=== PATIENT | male | born 2000 | race African-American/Black ===

== ENCOUNTER 2024-01-22 02:11 | Emergency (ER) | payer OTHER, SELFPAY ==
[2024-01-22 02:21] VITALS: BP 175/86; PULSE 68; RESP 16; TEMP 36.7; O2SAT 98; BMI 27.1
[2024-01-22 03:11] VITALS: TEMP 36.7
[2024-01-22] MEDS: IBUPROFEN 200 MG TABLET 600 MG PO (03:11)
[2024-01-22 03:14] VITALS: BP 145/74; PULSE 71; RESP 16; TEMP 36.7; O2SAT 98
[2024-01-22 03:15] VITALS: BP 145/74; PULSE 71; RESP 16; TEMP 36.7
--- NOTE | 2024-01-22 03:19 | ED_ITS ---
HPI - Extremity Injury (Lower) General Chief Complaint: Extremity Pain/Injury, Lower Stated Complaint: right foot pain Time Seen by Provider: 01/22/24 02:14 Source: patient Mode of arrival: ambulatory Limitations: no limitations History of Present Illness HPI Narrative: R Achillies pain up calf, happened jumping while playing volleyball at 1900. states swelling and pain with movement, did not take any pain meds Patient is a very nice student, here in town, from [place]. Was playing volleyball when he noted a pop in his right Achilles, since then he has had trouble bearing weight going up on his foot. Comes in [facility] for an assessment of this issue denies any numbness tingling weakness he has had no previous injury of problems. Is otherwise healthy. Place: school Severity: moderate Relieving factors: nothing Exacerbating factors: weight bearing and movement Context: jumping Associated symptoms: snap/pop sensation Related Data Home Medications Medication Instructions Recorded Confirmed No Known Home Medications 01/22/24 01/22/24 Allergies Allergy/AdvReac Type Severity Reaction Status Date / Time No Known Drug Allergies Allergy Verified 01/22/24 02:25 Review of Systems Status of ROS: Reports: 10 or more systems reviewed and unremarkable except as noted in History and below PFSH PFSH Social History Smoking Status: Never smoker Do you use any of these nicotine containing products: None How often do you have a drink containing alcohol: never AUDIT-C Alcohol total score: 0 Exam Narrative: Exam Narrative: On examination he is tender approximately 4-5 cm proximal to its insertion of his Achilles on his calcaneus. There is a little bit of swelling around here, but I do not see any elizabeth of bruising. The pain does go up into his calf muscle. He does have a negative Keita test, pulses are normal is lower extremities is sensations normal. With the ultrasound machine and a linear transducer I was able to see a complete tear in his Achilles, approximately 4-5 cm proximal to the insertion of his Achilles on his calcaneus. We were able to put him in Achilles cam walker, crutches were given, Const: Vital Signs, click to edit/add: Vital Signs - 24 hr 01/22/24 02:21 01/22/24 03:11 01/22/24 03:14 Temperature 98.1 F 98.1 F 98.1 F Pulse Rate [Pulse Oximeter] 68 71 Respiratory Rate 16 16 Blood Pressure [Ri ght Upper Arm] 175/86 H 145/74 H Pulse Oximetry 98 98 Oxygen Delivery Me thod Room Air Room Air 01/22/24 03:15 Temperature 98.1 F Pulse Rate [Pulse Oximeter] 71 Respiratory Rate 16 Blood Pressure [Ri ght Upper Arm] 145/74 H Pulse Oximetry Oxygen Delivery Me thod Course Vital Signs Vital signs: Initial Vital Signs Temperature 98.1 F 01/22/24 02:21 Temperature Source Temporal Artery Scan 01/22/24 02:21 Pulse Rate 68 01/22/24 02:21 Respiratory Rate 16 01/22/24 02:21 Blood Pressure 175/86 H 01/22/24 02:21 Blood Pressure Mean 115 H 01/22/24 02:21 Blood Pressure Position Sitting 01/22/24 02:21 Pulse Oximetry 98 01/22/24 02:21 Oxygen Delivery Method Room Air 01/22/24 02:21 Vital Signs Temperature 98.1 F 01/22/24 02:21 Pulse Rate 68 01/22/24 02:21 Respiratory Rate 16 01/22/24 02:21 Blood Pressure 175/86 H 01/22/24 02:21 Pulse Oximetry 98 01/22/24 02:21 Oxygen Delivery Method Room Air 01/22/24 02:21 Temperature 98.1 F 01/22/24 03:15 Pulse Rate 71 01/22/24 03:15 Respiratory Rate 16 01/22/24 03:15 Blood Pressure 145/74 H 01/22/24 03:15 Pulse Oximetry 98 01/22/24 03:14 Oxygen Delivery Method Room Air 01/22/24 03:14 Medications Administered Medications: Generic Name Dose Route Start Last Admin Trade Name Freq PRN Reason Stop Dose Admin Ibuprofen 600 mg 01/22/24 03:07 01/22/24 03:11 Ibuprofen 200 Mg Tablet PO 01/22/24 03:08 600 mg ONCE ONE Administration MDM - Extremity Injury (Lower) MDM Narrative Medical decision making narrative: Patient has an Achilles tear, that should be likely seen by Orthopedics and t reated surgically. He likely will need an MRI, but is going to spring over the course of next week. Back in [place] he will follow-up on Friday with Orthopedics, likely get his MRI and hopefully get his surgery before he comes back here to [place]. He knows to where the Achilles brace always. And only take this off when he cleans himself but to keep himself in equinus position Medical Records Attestation: I reviewed the patient's medical records. Discharge Plan Discharge Clinical Impression: Achilles rupture, right Qualifiers: Encounter type: initial encounter Qualified Code(s): S86.011A - Strain of right Achilles tendon, initial encounter Patient Disposition: Home, Self-Care Condition: Stable Instructions: Achilles Tendon Rupture (ED), Tendon Rupture (ED) Additional Instructions: Like I said the almost always this is surgical. I would like you to follow-up with orthopedics. He likely will order an MRI, recommend that she wear the splint all the time just taking it off to clean yourself, but she need to keep your foot in that position, cause if you straightening your foot out, you go back to sq 1. Ibuprofen 600 mg p.o. t.i.d.. Activity Level: No Weight Bearing and Use Crutches Activity Detail: Use crutches until following up with Orthopedics. Prescriptions: No Action No Known Home Medications Follow Up/Referrals: Jona Bruner MD [Staff Physician] - Brendon Puga MD [Staff Physician] - Gil Patricio MD [Staff Physician] - Stand Alone Forms: [employer] Info Instructions
== END 2024-01-22 03:16 | disposition home or self-care (01) ==
LOC: ED 03:10
PROVIDERS: Emergency Provider Family Medicine
DX: S86.011A Strain of right Achilles tendon, initial encounter (principal); X50.1XXA Overexertion from prolonged static or awkward postures, initial encounter; Y93.68 Activity, volleyball (beach) (court)
CPT/HCPCS: 29515; 99283; A9270

== ENCOUNTER 2024-02-05 13:27 | Outpatient (CLI) | payer OTHER, SELFPAY ==
--- NOTE | 2024-02-05 13:00 | MR_ITS ---
[facility] [address] [facility] [address] Phone:?[phone] Fax:?[phone] Referring Physician Information: RYLAN Sepulveda [address] [facility] [address] Phone:?[phone] Fax:?[phone] Patient:Pacheco Thornton D.O.B:?2000 Sex:?Male Phone:?[phone] [facility] MRN:?[id number] Exam Date:?02/05/2024 EXAM: MRI of the RIGHT ANKLE, without contrast CLINICAL: Right Achilles injury. Evaluate for Achilles tendon tear. COMPARISONS: None available. TECHNICAL: Multiplanar multisequence MRI of the right ankle was obtained. SEDATION: None. CONTRAST: None. FINDINGS: Achilles tendon: There is complete full-thickness rupture of the Achilles tendon occurring approximately 8 cm proximal to the calcaneal attachment site of the distal tendon. There is retraction of torn tendon fibers by approximately 1.5 cm with associated fluid-filled tendon gap. Tendinosis and partial tearing involves the Achilles tendon proximal and distal to the site of tendon rupture. Adjacent soft tissue edema is noted about the Achilles tendon rupture. Plantar fascia: Unremarkable. Tarsal tunnel: No masses identified. Sinus Tarsi:?Normal fat within the sinus tarsi without significant scar, synovitis, or mass lesion. Ligaments: Anterior talofibular: Attenuation and irregularity of the ligament consistent with sequelae of prior high-grade sprain injuries. Calcaneofibular: Mild irregularity suggesting sequelae of prior sprain injuries, without complete disruption. Posterior talofibular: No injury. Syndesmotic:?The anterior inferior and posterior inferior tibiofibular ligaments are intact. Deltoid: The deep and superficial components of the deltoid ligament are intact. Spring: Intact. Bifurcate and calcaneocuboid: Intact. Flexor tendons: Posterior tibial: Normal. Flexor digitorum longus: Mild fluid about the tendon. No significant tendinosis or tendon tear. Flexor hallucis longus: Moderate fluid about the tendon as it courses along the posterior ankle. No significant tendinosis or tendon tear. Peroneus brevis and longus: No tendinosis, tear or tenosynovitis. Extensor tendons: Tibialis anterior: Normal. Extensor hallucis longus: Normal. Extensor digitorum longus: Normal. Joints/Osseous structures: No evidence of bone marrow edema, fracture or talar dome osteochondral lesion. No significant joint effusion. IMPRESSION: 1. Complete full-thickness rupture of the Achilles tendon occurring approximately 8 cm proximal to the calcaneal attachment of the distal tendon with approximately 1.5 cm of proximal retraction of torn tendon fibers/fluid- filled tendon gap. 2. Sequelae of prior sprain injuries involving the anterior talofibular and calcaneofibular ligaments. 3. Moderate fluid about the flexor hallucis longus tendon as it courses along the posterior ankle with mild fluid about the flexor digitorum longus tendon. 4. No evidence of fracture or talar dome osteochondral lesion. JCZ Electronically signed on 02/06/2024 9:04:00 AM by Margarito Eaton D.O.
== END 2024-02-05 13:28 | disposition home or self-care (01) ==
LOC: MRI 13:28
PROVIDERS: Visit Provider Physician Assistant Surgical
DX: S86.011A Strain of right Achilles tendon, initial encounter (principal); S93.491A Sprain of other ligament of right ankle, initial encounter; S93.411A Sprain of calcaneofibular ligament of right ankle, initial encounter
CPT/HCPCS: 73721

== ENCOUNTER 2024-03-16 14:00 | Outpatient (RCR) | payer OTHER, SELFPAY | END 2024-07-14 23:59 | disposition home or self-care (01) | PROVIDERS: PCP Internal Medicine; Visit Provider Orthopaedic Surgery | DX: S86.011A Strain of right Achilles tendon, initial encounter (principal); Z51.89 Encounter for other specified aftercare | CPT/HCPCS: 97110; 97140; 97161 ==